=== PATIENT | female | born 1985 | race Caucasian/White ===

== ENCOUNTER 2017-02-16 09:34 | Emergency (ER) | payer MEDICAID, OTHER ==
[~2017-02-16] VITALS: Ht 152.4 cm; Wt 78.2 kg
[~2017-02-16 09:34] MED LIST: COLA100C5 PO; IBUP-1114 PO; MOM30SS PO; PERC5TAB12 PO
[2017-02-16] MEDS ORDERED: PAXI20TA29 PO (09:45)
[2017-02-16] MEDS ORDERED: ADDE20CA3 PO (09:45)
[2017-02-16] MEDS ORDERED: NS 1,000 ML IV ONE (11:15)
[2017-02-16] MEDS ORDERED: ONDANSETRON 4MG/2ML VIAL (J2405) IV ONE ×2 (11:15→13:45)
[2017-02-16] MEDS ORDERED: KETOROLAC 30 MG/ML VIAL (J1885) IV ONE (11:15)
[2017-02-16 12:00] LABS: BASO % 0.1 % (0.0-1.0); EOS # 0.1 10^3/uL (0.0-0.50); EOS % 1.2 % (0.0-3.0); IMMATURE GRANULOCYTE % 0.1 % (0-0); LYMPH # 0.5 10^3/uL (1.5-4.5); LYMPH % 4.7 % (24.0-44.0); MEAN CORPUSCULAR VOLUME 85.7 fl (80.0-96.0); MONO # 0.4 10^3/uL (0.0-0.8); MONO % 3.5 % (0.0-5.0); NEUTROPHILS % 90.4 % (36.0-66.0); PLATELET COUNT, AUTOMATED 205 10^3/uL (150-450); RED CELL DISTRIBUTION WIDTH 12.7 % (11.5-14.5); WHITE BLOOD COUNT 9.9 10^3/uL (4.0-10.0)
[2017-02-16 13:35] LABS: ALBUMIN 3.5 GM/DL (3.2-5.2); ALBUMIN/GLOBULIN RATIO 1.06 (1.00-1.93); ALKALINE PHOSPHATASE 84 U/L (45-117); ALT/SGPT 20 U/L (12-78); AMYLASE 50 U/L (25-115); ANION GAP 7 MEQ/L (8-16); AST/SGOT 15 U/L (15-37); BILIRUBIN,DIRECT 0.4 MG/DL (0.0-0.2); BLOOD UREA NITROGEN 14 MG/DL (7-18); CALCIUM LEVEL 7.9 MG/DL (8.5-10.1); CARBON DIOXIDE LEVEL 24 MEQ/L (21-32); CHLORIDE LEVEL 110 MEQ/L (98-107); CREATININE FOR GFR 0.44 MG/DL (0.55-1.02); GLOMERULAR FILTRATION RATE > 60.0 (>60); GLUCOSE, FASTING 91 MG/DL (70-105); POTASSIUM SERUM 3.6 MEQ/L (3.5-5.1); SODIUM LEVEL 141 MEQ/L (136-145); TOTAL PROTEIN 6.8 GM/DL (6.4-8.2)
[2017-02-16] MEDS ORDERED: ZOFR4TAB3 PO (14:08)
[2017-02-16 14:22] VITALS: BP 101/51
== END 2017-02-16 14:24 | disposition home or self-care (01) ==
LOC: M ED 09:34
DX: E86.0 Dehydration (principal); F41.9 Anxiety disorder, unspecified; F90.9 Attention-deficit hyperactivity disorder, unspecified type; Z79.899 Other long term (current) drug therapy
CPT/HCPCS: 36415; 80048; 80076; 81001; 81025; 82150; 83690; 85025; 87086; 96361; 96374; 96375; 99284; J1885; J2405

== ENCOUNTER → 2022-08-03 | Outpatient (CLI) | payer OTHER ==
[~2022-08-03] MED LIST changes: +ADDE20CA3 PO; +PAXI20TA30 PO; +ZOFR4TAB14 PO
== END ==
LOC: M RAD 15:09
PROVIDERS: ATTEND Student in an Organized Health Care Education/Training Program
DX: M25.511 Pain in right shoulder (principal)

== ENCOUNTER → 2022-09-06 | Outpatient (CLI) | payer OTHER | LOC: M SOG 11:43 | PROVIDERS: ATTEND Orthopaedic Surgery | DX: M25.561 Pain in right knee (principal) ==

== ENCOUNTER → 2024-03-28 | Outpatient (REF) | payer OTHER | LOC: M SFHCLERA 10:49 | PROVIDERS: ATTEND Physician Assistant | DX: R25.3 Fasciculation (principal); R20.2 Paresthesia of skin; Z68.36 Body mass index [BMI] 36.0-36.9, adult ==

== ENCOUNTER → 2024-04-01 | Outpatient (REF) | payer OTHER ==
[2024-04-01 18:21] LABS: BASO % 0.4 % (0.0-1.0); EOS # 0.2 10^3/uL (0.0-0.5); EOS % 3.3 % (0.0-3.0); HEMATOCRIT 36.3 % (36.0-47.0); HEMOGLOBIN 12.2 g/dl (12.0-15.5); LYMPH # 1.7 10^3/uL (1.5-5.0); LYMPH % 32.9 % (24.0-44.0); MEAN CORPUSCULAR HEMOGLOBIN 30.1 pg (27.0-33.0); MEAN CORPUSCULAR HGB CONC 33.6 g/dl (32.0-36.5); MEAN CORPUSCULAR VOLUME 89.6 fl (80.0-96.0); MONO # 0.4 10^3/uL (0.0-0.8); MONO % 8.4 % (2.0-8.0); NEUTROPHILS # 2.8 10^3/uL (1.5-8.5); NEUTROPHILS % 54.8 % (36.0-66.0); PLATELET COUNT, AUTOMATED 238 10^3/uL (150-450); RED BLOOD COUNT 4.05 10^6/uL (4.00-5.40); WHITE BLOOD COUNT 5.1 10^3/uL (4.0-10.0)
[2024-04-01 18:56] LABS: ALBUMIN 4.1 G/DL (3.2-5.2); ALKALINE PHOSPHATASE 80 U/L (35-104); ALT/SGPT 17 U/L (7.0-40); AST/SGOT 11 U/L (<34); BILIRUBIN,TOTAL 1.3 MG/DL (0.3-1.2); BLOOD UREA NITROGEN 11 MG/DL (9-23); CALCIUM LEVEL 9.4 MG/DL (8.5-10.1); CARBON DIOXIDE LEVEL 28 MMOL/L (20-31); CHLORIDE LEVEL 104 MMOL/L (98-107); CHOLESTEROL LEVEL 205 MG/DL (<200); CHOLESTEROL RISK RATIO 3.32 (<5); CREATININE FOR GFR 0.58 MG/DL (0.55-1.30); FERRITIN 70.3 NG/ML (7.3-270.7); FOLATE 13.4 NG/ML (>5.4); GLOMERULAR FILTRATION RATE > 60.0 (>60); GLUCOSE, FASTING 83 MG/DL (60-100); HDL CHOLESTEROL 61.6 MG/DL (>40); IRON (FE) 101 UG/DL (50-170); NON-HDL-C 143.4 MG/DL; PERCENT SATURATION 31.5 % (13.2-45.0); POTASSIUM SERUM 3.9 MMOL/L (3.5-5.1); SODIUM LEVEL 139 MMOL/L (136-145); TOTAL 25(OH) VITAMIN D 23.3 NG/ML (20.0-100.0); TOTAL IRON BINDING CAPACITY 321 UG/DL (250-425); TOTAL PROTEIN 7.5 G/DL (5.7-8.2); TRIGLYCERIDES LEVEL 97 MG/DL (<150)
[2024-04-01 18:57] LABS: VITAMIN B12 LEVEL 454 PG/ML (211-911)
== END ==
LOC: M SFHCLERA 10:24
PROVIDERS: ATTEND Physician Assistant
DX: R25.3 Fasciculation (principal); R20.2 Paresthesia of skin; Z68.36 Body mass index [BMI] 36.0-36.9, adult

== ENCOUNTER 2024-08-14 15:07 | Emergency (ER) | payer OTHER ==
[~2024-08-14] VITALS: Ht 152.4 cm; Wt 83.3 kg
[2024-08-14] MEDS ORDERED: PHEN15CA6 (15:14)
[2024-08-14] MEDS ORDERED: MIREIUD (15:16)
[2024-08-14 17:44] VITALS: BP 129/73; TEMP 97.4; O2SAT 99
[2024-08-14] MEDS ORDERED: INDO50CA91 PO (18:02)
== END 2024-08-14 18:10 | disposition home or self-care (01) ==
LOC: M ED 15:07
DX: M25.461 Effusion, right knee (principal); M70.51 Other bursitis of knee, right knee; F90.9 Attention-deficit hyperactivity disorder, unspecified type; Y92.89 Other specified places as the place of occurrence of the external cause; Y93.89 Activity, other specified; Y99.0 Civilian activity done for income or pay; Z79.899 Other long term (current) drug therapy

== ENCOUNTER → 2025-02-03 | Outpatient (REF) | payer OTHER ==
[~2025-02-03] MED LIST changes: +INDO50CA91 PO; +MIREIUD; +PHEN15CA6
[2025-02-05 20:52] LABS: HPV APTIMA Not Detected (Not Detected)
== END ==
LOC: M SFHCWAGY 17:59
PROVIDERS: ATTEND Nurse Practitioner Family
DX: Z12.4 Encounter for screening for malignant neoplasm of cervix (principal)

== ENCOUNTER → 2025-05-07 | Outpatient (REF) | payer OTHER | LOC: M SFHCLERA 14:28 | PROVIDERS: ATTEND Family Medicine | DX: E78.5 Hyperlipidemia, unspecified (principal) ==